=== PATIENT | female | born 1985 | race American Indian/Alaskan Native ===

== ENCOUNTER 2017-02-18 19:25 | Emergency (ER) | payer MEDICAID, OTHER ==
[2017-02-18 19:46] VITALS: BP 126/78
--- NOTE | 2017-02-18 20:47 | EDM.PDOC ---
ED HPI GI/ABDOMINAL - General Chief Complaint: Back Pain or Injury Stated Complaint: LEFT FLANK PAIN Time Seen by Provider: 02/18/17 19:58 Source: Reports: Patient History Limitations: Reports: No limitations - History of Present Illness INITIAL COMMENTS - FREE TEXT/NARRATIVE: left flank pain and painful urination; this is a 32 year old female present to ER for evaluation of symptoms. She reports this is similar symptoms of her previous kidney infection. has dysuria, left flank pain, and intermittent of fever (does not have a thermometer for the past two days. denies any , vaginal discharge, spotting, bleeding or pelvic pain. Timing/Duration: Reports: Day(s): (two), Constant, Getting worse Location: flank Quality: Reports: burning, throbbing Severity: moderate Worsens with: Reports: urinating, vomiting Associated Symptoms (-Female): Reports: back pain, fever/chills, loss of appetite, nausea/vomiting - Related Data Allergies/ADRs: Allergies Allergy/AdvReac Type Severity Reaction Status Date / Time No Known Allergies Allergy Verified 02/18/17 19:54 Home Meds: Home Meds Escitalopram [Lexapro] 02/18/17 [History] QUEtiapine Fumarate [Quetiapine Fumarate] 02/18/17 [History] Past Medical History Musculoskeletal History: Reports: Other (see below) Other Musculoskeletal History: foot - Past Surgical History Female Surgical History: Reports: section Musculoskeletal Surgical History: Reports: Shoulder surgery Social & Family History - Tobacco Use Smoking Status *Q: Current Every Day Smoker Years of Tobacco use: 10 Packs/Tins Daily: 0.5 Second Hand Smoke Exposure: No - Alcohol Use Days Per Week of Alcohol Use: 0 - Recreational Drug Use Recreational Drug Use: No - Living Situation & Occupation Living situation: Reports: single, with significant other Occupation: unemployed (lives in "[place] at [place]) ED ROS GENERAL - Review of Systems Review Of Systems: See Below Constitutional: Reports: fever, chills, malaise, decreased appetite HEENT: Reports: No symptoms Respiratory: Reports: No Symptoms Cardiovascular: Reports: No symptoms Endocrine: Reports: no symptoms GI/Abdominal: Reports: Abdominal pain : Reports: dysuria, flank pain, frequency, urgency Musculoskeletal: Reports: back pain Skin: Reports: no symptoms Neurological: Reports: No Symptoms Psychiatric: Reports: No symptoms Hematologic/Lymphatic: Reports: no symptoms Immunologic: Reports: no symptoms ED EXAM, GI/ABD - Physical Exam Exam: See Below Exam Limited By: No limitations General Appearance: WD/WN, mild distress Eyes: bilateral: normal appearance, EOMI Ears: normal external exam, normal canal, hearing grossly normal, normal TMs Nose: normal inspection, normal mucosa, no blood Throat/Mouth: Normal inspection Head: atraumatic, normocephalic Neck: normal inspection, supple, non-tender, full range of motion Respiratory/Chest: no respiratory distress Cardiovascular: normal peripheral pulses, regular rate, rhythm, no edema, no gallop, no JVD, no murmur, no rub GI/Abdominal: normal bowel sounds, soft, no organomegaly, no distention, tenderness (left flank pain) (Female) Exam: Deferred Rectal (Female) Exam: Deferred Back Exam: normal inspection, full range of motion, NT Extremities: normal inspection, normal range of motion, non-tender, normal capillary refill, no pedal edema Neurological: alert, oriented, CN II-XII intact, normal cognition, normal gait, normal reflexes, no motor/sensory deficits Psychiatric: normal affect, normal mood Skin Exam: Warm, Dry, Intact, Normal color, No rash Lymphatic: no adenopathy Course - Vital Signs Last Recorded V/S: Last Vital Signs Temp 36.5 C 02/18/17 19:59 Pulse 86 02/18/17 19:59 Resp 16 02/18/17 19:59 BP 126/78 02/18/17 19:59 Pulse Ox 100 02/18/17 19:59 - Orders/Labs/Meds Orders: Active Orders 24 hr Category Date Time Status CULTURE URINE [RM] Stat Lab 02/18/17 20:41 Received Labs: Laboratory Tests 02/18/17 02/18/17 Range/Units 19:51 20:01 Urine Color Yellow Urine Appearance Cloudy Urine pH 8.0 (4.5-8.0) Ur Specific [place] 1.015 (1.008-1.030) Urine Protein Negative (NEGATIVE) mg/dL Urine Glucose (UA) Normal (NEGATIVE) mg/dL Urine Ketones Negative (NEGATIVE) mg/dL Urine Occult Blood Negative (NEGATIVE) Urine Nitrite Negative (NEGATIVE) Urine Bilirubin Negative (NEGATIVE) Urine Urobilinogen Normal (NORMAL) mg/dL Ur Leukocyte Esterase Negative (NEGATIVE) Urine RBC 0-5 (0-5) Urine WBC 0-5 (0-5) Ur Epithelial Cells Moderate Amorphous Sediment Few Urine Bacteria Rare Urine Mucus Few Urine HCG, Qual Negative Departure - Departure Time of Disposition: 21:13 Disposition: Home, Self-Care 01 Clinical Impression: Flank pain, acute, UTI (urinary tract infection) Instructions: Urinary Tract Infection, Adult, [id number], Flank Pain, Easy-to -Read Referrals: PCP,None [Primary Care Provider] - Forms: ED Department Discharge Care Plan Goals: urinary tract infection left flank pain -macrobid one by mouth two times a day for 7 days -tylenol with codiene one tablet every 4 to6 hours as needed for pain -urine culture pending -push fluids, rest, take medication as directed -follow up with Primary Care Provider at [facility] on for recheck, sooner if not improved. - Problem List & Annotations (1) Flank pain, acute SNOMED Code(s): 157376552 Code(s): R10.9 - UNSPECIFIED ABDOMINAL PAIN Status: Acute (2) UTI (urinary tract infection) SNOMED Code(s): 80291266 Code(s): N39.0 - URINARY TRACT INFECTION, SITE NOT SPECIFIED Status: Acute - My Orders Last 24 Hours: My Active Orders 02/18/17 20:41 CULTURE URINE [RM] Stat - Assessment/Plan Last 24 Hours: My Active Orders 02/18/17 20:41 CULTURE URINE [RM] Stat Plan: urinary tract infection left flank pain -macrobid one by mouth two times a day for 7 days -tylenol with codiene one tablet every 4 to6 hours as needed for pain -urine culture pending -push fluids, rest, take medication as directed -follow up with Primary Care Provider at [facility] on for recheck, sooner if not improved.
== END 2017-02-18 21:13 | disposition home or self-care (01) ==
LOC: JP.ED 19:25
DX: N39.0 Urinary tract infection, site not specified (principal); R10.9 Unspecified abdominal pain; F17.210 Nicotine dependence, cigarettes, uncomplicated; Z98.890 Other specified postprocedural states
CPT/HCPCS: 81001; 81025; 87086; 99283; 99284

== ENCOUNTER 2017-03-23 19:51 | Emergency (ER) | payer MEDICAID ==
[2017-03-23 20:50] VITALS: BP 123/84
--- NOTE | 2017-03-23 21:49 | EDM.PDOC ---
ED HPI GENERAL MEDICAL PROBLEM - General Chief Complaint: Respiratory Problem Stated Complaint: COLD Time Seen by Provider: 03/23/17 21:45 Source of Information: Reports: Patient History Limitations: Reports: No Limitations - History of Present Illness INITIAL COMMENTS - FREE TEXT/NARRATIVE: With cough x 1 month. Reports fever and chills last night. Concerned about pneumonia. Records show she was hospitalized from 03/20-03/22 with pneumonia in [place] and left AMA. Does smoke. Boyfriend does not share that patient has been seen previous during my interview. Onset: Gradual Improves with: Reports: None Worsens with: Reports: None Associated Symptoms: Reports: Fever/Chills, Headaches - Related Data Allergies Allergy/AdvReac Type Severity Reaction Status Date / Time naproxen [From Naprosyn] Allergy Severe Shortness Verified 03/23/17 20:56 of Breath Home Meds: Home Meds Escitalopram [Lexapro] 10 mg PO DAILY 02/18/17 [History] QUEtiapine Fumarate [Quetiapine Fumarate] 02/18/17 [History] Past Medical History Respiratory History: Reports: Asthma Musculoskeletal History: Reports: Other (See Below) Other Musculoskeletal History: foot - Past Surgical History Female Surgical History: Reports: Section Musculoskeletal Surgical History: Reports: Shoulder Surgery Social & Family History - Tobacco Use Smoking Status *Q: Current Every Day Smoker Years of Tobacco use: 19 Packs/Tins Daily: 0.5 Second Hand Smoke Exposure: Yes - Caffeine Use Caffeine Use: Reports: None - Alcohol Use Days Per Week of Alcohol Use: 0 - Recreational Drug Use Recreational Drug Use: Yes - Living Situation & Occupation Living situation: Reports: Single, with Significant Other Occupation: Unemployed ED ROS GENERAL - Review of Systems Review Of Systems: See Below Constitutional: Reports: Fever, Chills, Malaise HEENT: Reports: No Symptoms Respiratory: Reports: Cough Cardiovascular: Reports: No Symptoms GI/Abdominal: Reports: No Symptoms ED EXAM, GENERAL - Physical Exam Exam: See Below Exam Limited By: No Limitations General Appearance: Alert, WD/WN, No Apparent Distress Ears: Normal External Exam, Normal Canal, Hearing Grossly Normal, Normal TMs Nose: Normal Inspection, Normal Mucosa, No Blood Throat/Mouth: Normal Inspection, Normal Lips, Normal Teeth, Normal Gums, Normal Oropharynx, Normal Voice, No Airway Compromise Head: Atraumatic, Normocephalic Neck: Normal Inspection, Supple, Non-Tender, Full Range of Motion Respiratory/Chest: No Respiratory Distress, Lungs Clear, Normal Breath Sounds, No Accessory Muscle Use, Chest Non-Tender, Rhonchi (left lower lobe) Cardiovascular: Normal Peripheral Pulses, Regular Rate, Rhythm, No Edema, No Gallop, No JVD, No Murmur, No Rub GI/Abdominal: Normal Bowel Sounds, Soft, Non-Tender, No Organomegaly, No Distention, No Abnormal Bruit, No Mass Course - Vital Signs Last Recorded V/S: Last Vital Signs Temp 98.9 F 03/23/17 20:49 Pulse 74 03/23/17 20:49 Resp 16 03/23/17 20:49 BP 123/84 03/23/17 20:49 Pulse Ox 94 L 03/23/17 20:49 - Orders/Labs/Meds Labs: Laboratory Tests 03/23/17 Range/Units 21:49 WBC 10.2 (4.5-11.0) K/uL RBC 4.22 (3.30-5.50) M/uL Hgb 12.2 (12.0-15.0) g/dL Hct 36.0 (36.0-48.0) % MCV 85 (80-98) fL MCH 29 (27-31) pg MCHC 34 (32-36) % Plt Count 415 H (150-400) K/uL Neut % (Auto) 59 (36-66) % Lymph % (Auto) 27 (24-44) % [place] % (Auto) 10 H (2-6) % Eos % (Auto) 4 (2-4) % Baso % (Auto) 1 (0-1) % Departure - Departure Time of Disposition: 22:06 Disposition: Home, Self-Care 01 Condition: good Clinical Impression: Pneumonia Qualifiers: Pneumonia type: due to unspecified organism Laterality: left Lung location: lower lobe of lung Qualified Code(s): J18.1 - Lobar pneumonia, unspecified organism - Discharge Information Instructions: Community-Acquired Pneumonia, Adult, [id number] Forms: ED Department Discharge Additional Instructions: Pt diagnosed with pneumonia in [place]. Notes reviewed. Will send home with Zpak as directed x 4 days. 500mg po given in ER today. Encouraged smoking cessation. Increase fluids, rest. Followup if worsening and prn. - Problem List & Annotations (1) Pneumonia SNOMED Code(s): 773049378 Code(s): J18.9 - PNEUMONIA, UNSPECIFIED ORGANISM Status: Acute Priority: Low Current Visit: Yes Qualifiers: Pneumonia type: due to unspecified organism Laterality: left Lung location: lower lobe of lung Qualified Code(s): J18.1 - Lobar pneumonia, unspecified organism - Problem List Review Problem List Initiated/Reviewed/Updated: Yes
[2017-03-23] MEDS ORDERED: Azithromycin 250 MG Tab PO SCH (22:15)
== END 2017-03-23 22:21 | disposition home or self-care (01) ==
LOC: JP.ED 19:51
DX: J18.9 Pneumonia, unspecified organism (principal); F17.210 Nicotine dependence, cigarettes, uncomplicated; J45.909 Unspecified asthma, uncomplicated; Z98.890 Other specified postprocedural states; Z79.899 Other long term (current) drug therapy; Z88.8 Allergy status to other drugs, medicaments and biological substances
CPT/HCPCS: 36415; 85025; 99284; A9270; 99283

== ENCOUNTER 2019-12-22 23:17 | Emergency (ER) | payer MEDICAID ==
[2019-12-22 23:49] VITALS: BP 124/67; PULSE 77
--- NOTE | 2019-12-23 00:16 | EDM.PDOC ---
ED HPI GENERAL MEDICAL PROBLEM - General Chief Complaint: Upper Extremity Injury/Pain Stated Complaint: HURT WRIST Time Seen by Provider: 12/22/19 23:47 Source of Information: Reports: Patient History Limitations: Reports: No Limitations - History of Present Illness INITIAL COMMENTS - FREE TEXT/NARRATIVE: 34-year-old female who injured her wrist 2 or 3 months ago, it has been hurting intermittently since that time but she was wrestling around with someone 2 days ago and now it is very painful. No direct blow to the wrist, no deformity. Onset: Unknown/Unsure Location: Reports: Upper Extremity, Right Associated Symptoms: Reports: No Other Symptoms right wrist Pain Score (Numeric/FACES): 6 - Related Data Allergies Allergy/AdvReac Type Severity Reaction Status Date / Time naproxen [From Naprosyn] Allergy Severe Shortness Verified 12/23/19 00:21 of Breath Home Meds: Home Meds Escitalopram [Lexapro] 20 mg PO DAILY 02/18/17 [History] Past Medical History HEENT History: Reports: Impaired Vision Respiratory History: Reports: Asthma [employer] History: Reports: Musculoskeletal History: Reports: Other (See Below) Other Musculoskeletal History: foot Neurological History: Reports: Concussion Psychiatric History: Reports: Anxiety, Depression - Infectious Disease History Infectious Disease History: Reports: Chicken Pox - Past Surgical History Female Surgical History: Reports: Section Musculoskeletal Surgical History: Reports: Shoulder Surgery Social & Family History - Tobacco Use Smoking Status *Q: Current Every Day Smoker Years of Tobacco use: 15 Packs/Tins Daily: 0.5 - Caffeine Use Caffeine Use: Reports: Coffee, Soda - Recreational Drug Use Recreational Drug Use: Yes Drug Use in Last 12 Months: No - Living Situation & Occupation Living situation: Reports: Single, with Significant Other Occupation: Unemployed Review of Systems - Review of Systems Review Of Systems: See Below Constitutional: Denies: Fever Respiratory: Denies: Shortness of Breath Cardiovascular: Denies: Chest Pain GI/Abdominal: Denies: Abdominal Pain Skin: Denies: Bruising ED EXAM, GENERAL - Physical Exam Exam: See Below Exam Limited By: No Limitations General Appearance: Alert, No Apparent Distress Head: Atraumatic Respiratory/Chest: Lungs Clear Extremities: Other (Exam is otherwise limited to the right wrist. It is symmetric to the left, on palpation she is tender over the dorsal aspect of the wrist. There is increased pain with extension against resistance. Grasp strength is good but also tender) Course - Vital Signs Last Recorded V/S: Last Vital Signs Temp 98.0 F 12/22/19 23:38 Pulse 77 12/22/19 23:38 Resp 16 12/22/19 23:38 BP 124/67 12/22/19 23:38 Pulse Ox 99 12/22/19 23:38 - Orders/Labs/Meds Orders: Active Orders 24 hr Category Date Time Status Wrist Comp Min 3V Rt [CR] Stat Exams 12/22/19 23:51 Taken - Re-Assessments/Exams Free Text/Narrative Re-Assessment/Exam: 12/23/19 00:17 X-ray is negative. Patient likely has some lingering tendinitis or ligament sprain of the intercarpal ligaments. A 3 inch Jose Angel wrap was applied to the wrist and she was encouraged to take a regular anti-inflammatory over the next 5 to 10 days. If not improving satisfactorily, she was given information on how to contact Dr. Alvarado at the orthopedic clinic to set up a referral. Departure - Departure Time of Disposition: 00:27 Disposition: Home, Self-Care 01 Clinical Impression: Right wrist tendinitis - Discharge Information Instructions: Tendinitis Referrals: PCP,None [Primary Care Provider] - Forms: ED Department Discharge Care Plan Goals: Wear Jose Angel wrap on the wrist for support, a regular dose of ibuprofen or naproxen should help and consider making appointment with Dr. Alvarado if not improving over the next 1 to 2 weeks. Sepsis Event Note - Evaluation Sepsis Screening Result: No Definite Risk - Focused Exam Vital Signs: Vital Signs Temp Pulse Resp BP Pulse Ox 12/22/19 23:38 98.0 F 77 16 124/67 99 12/22/19 23:36 98.0 F 77 16 124/67 99 Date Exam was Performed: 12/23/19 Time Exam was Performed: 03:06 - My Orders Last 24 Hours: My Active Orders 12/22/19 23:51 Wrist Comp Min 3V Rt [CR] Stat - Assessment/Plan Last 24 Hours: My Active Orders 12/22/19 23:51 Wrist Comp Min 3V Rt [CR] Stat
--- NOTE | 2019-12-23 08:54 | CR ---
Wrist Comp Min 3V Rt CLINICAL HISTORY: Pain, injury FINDINGS: There is no acute fracture or dislocation within the right wrist. Impression: Negative
== END 2019-12-23 00:27 | disposition home or self-care (01) ==
LOC: JP.ED 23:17
DX: M77.9 Enthesopathy, unspecified (principal); F17.210 Nicotine dependence, cigarettes, uncomplicated; J45.909 Unspecified asthma, uncomplicated; F41.9 Anxiety disorder, unspecified; F32.9 Major depressive disorder, single episode, unspecified; Z88.8 Allergy status to other drugs, medicaments and biological substances; Z79.899 Other long term (current) drug therapy
CPT/HCPCS: 73110-26-RT; 73110-RT; 99282; 99283

== ENCOUNTER 2023-06-07 14:42 | Emergency (ER) | payer MEDICAID ==
[2023-06-07] MEDS ORDERED: Haloperidol Lactate 5 MG/ML SDV IVPUSH ONE (14:44)
[2023-06-07 14:56] LABS: BASOPHILS ABSOLUTE AUTO 0.07 K/uL (0.00-0.10); BASOPHILS PERCENT AUTO 0.5 % (0.1-1.3); EOSINOPHILS ABSOLUTE AUTO 0.06 K/uL (0.00-0.40); EOSINOPHILS PERCENT AUTO 0.4 % (0.0-5.4); HEMOGLOBIN 14.6 g/dL (11.2-15.5); IMMATURE GRAN ABSOLUTE AUTO 0.11 K/uL (0.00-0.23); IMMATURE GRAN PERCENT AUTO 0.8 % (0.0-0.7); MEAN CORPUSCULAR HEMOGLOBIN 29.9 pg (31.6-35.5); MEAN CORPUSCULAR HGB CONC 34.8 g/dL (31.6-35.5); MEAN CORPUSCULAR VOLUME 85.9 fL (81.4-99.0); MONOCYTES ABSOLUTE AUTO 0.81 K/uL (0.20-0.90); MONOCYTES PERCENT AUTO 5.6 % (3.3-12.6); NEUTROPHILS ABSOLUTE AUTO 11.86 K/uL (1.0-7.6); NEUTROPHILS PERCENT AUTO 81.7 % (40.0-78.1); PLATELET COUNT,PLT 407 K/uL (130-375); RED BLOOD CELL COUNT 4.89 M/uL (3.77-5.24); WHITE BLOOD CELL COUNT,WBC 14.5 K/uL (3.2-11.0)
[2023-06-07 15:18] LABS: ALANINE AMINOTRANSFERASE,ALT 55 U/L (12-78); ALBUMIN 4.5 g/dL (3.4-5.0); ALKALINE PHOSPHATASE 146 U/L (46-116); ANION GAP 15.9 mmol/L (5.0-14.0); ASPARTATE AMNIOTRANSFERASE,AST 98 U/L (15-37); BILIRUBIN TOTAL 1.7 mg/dL (0.2-1.0); BLOOD UREA NITROGEN,BUN 23 mg/dL (7-18); CALCIUM 9.4 mg/dL (8.5-10.1); CARBON DIOXIDE,CO2 22 mmol/L (21-32); CHLORIDE,CL 107 mmol/L (100-108); CREATININE 2.2 mg/dL (0.6-1.0); EST CRCL DRUG DOSING (CG) 29.94 mL/min; ESTIMATED GFR 29 mL/min (>60); GLUCOSE RANDOM 94 mg/dL (74-106); POTASSIUM,K 3.9 mmol/L (3.6-5.2); PROTEIN TOTAL,TP 8.9 g/dL (6.4-8.2); SODIUM,NA 145 mmol/L (140-148)
[2023-06-07 16:15] LABS: APPEARANCE,URINE SLIGHTLY CLOUDY (CLEAR); BILIRUBIN,URINE NEGATIVE (NEGATIVE); COLOR,URINE YELLOW (YELLOW); GLUCOSE,URINE NEGATIVE (NEGATIVE); KETONES,URINE 15 mg/dL (NEGATIVE); LEUKOCYTE ESTERASE,URINE NEGATIVE (NEGATIVE); NITRITE,URINE NEGATIVE (NEGATIVE); OCCULT BLOOD,URINE MODERATE (NEGATIVE); PH,URINE 8.5 (5.0-8.0); PROTEIN,URINE >=300 mg/dL (NEGATIVE); UROBILINOGEN,URINE 0.2 EU/dL (0.2-1.0)
[2023-06-07] MEDS ORDERED: Sodium Chloride 0.9% 1,000 ML IV SCH (16:15)
[2023-06-07 16:24] LABS: AMPHETAMINES SCREEN, URINE NEGATIVE (NEGATIVE); BARBITURATE SCREEN,URINE NEGATIVE (NEGATIVE); BENZODIAZEPINES SCREEN,URINE NEGATIVE (NEGATIVE); METHADONE SCREEN, URINE NEGATIVE (NEGATIVE); METHAMPHETAMINES SCREEN, URINE PRESUMPTIVE POSITIVE (NEGATIVE); OXYCODONE SCREEN,URINE NEGATIVE (NEGATIVE); PROPOXYPHENE SCREEN,URINE NEGATIVE (NEGATIVE); THC SCREEN,URINE 50 NG/ML PRESUMPTIVE POSITIVE (NEGATIVE)
[2023-06-07 16:25] LABS: AMORPHOUS SEDIMENT,URINE MODERATE; BACTERIA,URINE MANY; EPITHELIAL CELLS,URINE MANY; MUCUS,URINE FEW; RBC,URINE 20-30 (0-5); WBC,URINE 0-5 (0-5)
[2023-06-07] MEDS ORDERED: Propofol 200 MG/20 ML SDV IVPUSH ONE (17:48)
[2023-06-07 20:52] VITALS: BP 95/56; PULSE 73
== END 2023-06-08 06:44 | disposition home or self-care (01) ==
LOC: JP.ED 14:42
DX: S43.004A Unspecified dislocation of right shoulder joint, initial encounter (principal); S80.01XA Contusion of right knee, initial encounter; S80.02XA Contusion of left knee, initial encounter; S90.30XA Contusion of unspecified foot, initial encounter; S00.81XA Abrasion of other part of head, initial encounter; F15.10 Other stimulant abuse, uncomplicated; J45.909 Unspecified asthma, uncomplicated; Z88.6 Allergy status to analgesic agent; Z98.890 Other specified postprocedural states; W22.8XXA Striking against or struck by other objects, initial encounter
CPT/HCPCS: 23650; 36415; 51702; 73020; 80053; 80305; 81001; 81025; 83690; 85025; 96361; 96374; 99285; J1630; J2704; J7030